=== PATIENT | male | born 1950 | race Caucasian/White ===

== ENCOUNTER 2021-02-05 12:44 | Inpatient (IN) | payer MEDICARE, OTHER ==
[2021-02-05 13:37] LABS: #Basophils 0.1 10x3/uL (0.0-0.2); #Eosinphils 0.3 10x3/uL (0.0-0.5); #Monocytes 0.6 10x3/uL (0.0-1.1); #Neutrophils 6.2 10x3/uL (1.5-8.4); %Basophils 0.7 % (0.0-2.0); %Eosinophils 2.9 % (0.0-6.0); %Lymphocytes 20.7 % (18.0-47.0); %Monocytes 6.3 % (0.0-10.0); %Neutrophils 68.7 % (40.0-75.0); Mean Corpuscular HGB CONC 32.5 g/dL (32.0-36.0); Mean Corpuscular Volume 92.5 fl (81.2-95.1); Mean Platelet Volume 10.3 fl (7.4-10.4); Platelet Count 253 10x3/uL (150-450); RBC Distribution Width 12.8 % (11.5-14.5); Red Blood Cell (RBC) Count 4.66 10x6/uL (4.32-5.72)
[2021-02-05 13:56] LABS: ALT (SGPT) 18 U/L (8-55); AST (SGOT) 19 U/L (5-34); Albumin 3.9 g/dL (3.4-4.8); Alkaline Phosphatase 87 U/L (40-110); Anion Gap 15 mmol/L (10-20); BUN (Urea Nitrogen) 34 mg/dL (8.4-25.7); Calc. Creatinine Clearance 0 mL/min (70-130); Calcium 10.1 mg/dL (7.8-10.44); Carbon Dioxide 25 mmol/L (23-31); Chloride 105 mmol/L (98-107); Globulin 3.6 g/dL (2.4-3.5); Glucose 221 mg/dL (80-115); Potassium 4.4 mmol/L (3.5-5.1); Protein, Total 7.5 g/dL (5.8-8.1); Sodium 141 mmol/L (136-145)
[2021-02-05 14:16] LABS: CKMB 1.8 ng/mL (0-6.6)
[2021-02-05] MEDS ORDERED: Haloperidol Lactate 5 MG/ML VIAL ONE ×2 (14:35→20:23)
[2021-02-05] MEDS ORDERED: Midazolam HCl 2 mg/2 ml Vial ONE ×2 (15:06→18:32)
[2021-02-05 15:53] LABS: Bilirubin Neg (Negative); Blood, Urine Negative (Negative); Glucose, Urine (Dipstick) 50 mg/dL (Negative); Ketone, Urine 5 mg/dL (Negative); Leukocyte 25 (Negative); Nitrite Negative (Negative); Protein, Urine (Dipstick) 100 mg/dl (Neg-Trace); Urobilinogen Normal mg/dL (Less than 2)
[2021-02-05 16:00] LABS: Clarity Clear (Clear)
[2021-02-05 16:12] LABS: RBC/HPF None Seen HPF (0-3); Squamous Epithelial 0-3 HPF (0-3)
[2021-02-05 16:13] LABS: Bacteria/HPF Rare-Few HPF (None Seen)
[2021-02-05 19:30] LABS: Troponin I 0.102 ng/mL (< 0.028)
[2021-02-05] MEDS ORDERED: Senokot S 8.6-50 MG TAB PO PRN (21:40)
[2021-02-05] MEDS ORDERED: Acetaminophen 325 MG TAB PO PRN (21:40)
[2021-02-05] MEDS ORDERED: Calcium Carbonate 500 MG ChewTAB PO PRN (21:40)
[2021-02-05] MEDS ORDERED: Ondansetron PF 4 MG/2 ML Vial IVP PRN (21:40)
[2021-02-05] MEDS ORDERED: Dextrose 5% in Water 1,000 ML IV PRN (21:54)
[2021-02-05] MEDS ORDERED: Dextrose 50% Abboject 50 ML SYRINGE SLOW IVP PRN (21:54)
[2021-02-06 00:20] LABS: CKMB 2.4 ng/mL (0-6.6)
[2021-02-06 04:15] LABS: Anion Gap 15 mmol/L (10-20); BUN (Urea Nitrogen) 34 mg/dL (8.4-25.7); Calc. Creatinine Clearance 0 mL/min (70-130); Calcium 9.8 mg/dL (7.8-10.44); Carbon Dioxide 25 mmol/L (23-31); Chloride 106 mmol/L (98-107); Glucose 145 mg/dL (80-115); Potassium 3.7 mmol/L (3.5-5.1); Sodium 142 mmol/L (136-145)
[2021-02-06 04:46] LABS: CKMB 2.4 ng/mL (0-6.6)
[2021-02-06] MEDS ORDERED: Aspirin Chewable 81 MG TAB ONE (10:02)
[2021-02-06] MEDS ORDERED: Haloperidol Lactate 5 MG/ML VIAL ONE (11:06)
[2021-02-06] MEDS: Alogliptin 25 MG TAB PO SCH (14:56)
[2021-02-06] MEDS: Citalopram 20 MG TAB PO SCH (14:56)
[2021-02-06] MEDS: Amlodipine 10 MG TAB PO SCH (14:56)
[2021-02-06] MEDS: Carvedilol 25 MG TAB PO SCH ×2 (14:56→16:46)
[2021-02-06] MEDS: Aspirin 81 mg Enteric Coated Tablet PO SCH (14:56)
[2021-02-06] MEDS: Sodium Chloride 0.9% 1,000 ML IV SCH (14:56)
[2021-02-06] MEDS: Enoxaparin Sodium 40 MG/0.4 ML SYRINGE SC SCH (14:56)
[2021-02-06] MEDS ORDERED: cloNIDine 0.1mg/24 Hour PATCH TD SCH (17:00)
[2021-02-06 20:48] LABS: Hemoglobin A1c 7.6 % (4.0-6.0)
[2021-02-06] MEDS: Tamsulosin HCl 0.4 MG CAP PO SCH (21:48)
[2021-02-06] MEDS: Rosuvastatin 20 MG TAB PO SCH (21:49)
[2021-02-07] MEDS: Sodium Chloride 0.9% 1,000 ML IV SCH ×2 (01:34→15:50)
[2021-02-07 08:59] LABS: Anion Gap 17 mmol/L (10-20); BUN (Urea Nitrogen) 29 mg/dL (8.4-25.7); Calc. Creatinine Clearance 57 mL/min (70-130); Calcium 9.3 mg/dL (7.8-10.44); Carbon Dioxide 23 mmol/L (23-31); Cardiac Risk 6.8 (Less than 4.5); Chloride 106 mmol/L (98-107); Cholesterol 122 mg/dl (< 200 Desired); Glucose 194 mg/dL (80-115); HDL Cholesterol 18 mg/dL (>60 Neg Risk); LDL Cholesterol, Calculated 68 mg/dL; Potassium 3.7 mmol/L (3.5-5.1); Sodium 142 mmol/L (136-145); Triglycerides 179 mg/dL (Less than 150)
[2021-02-07] MEDS: Citalopram 20 MG TAB PO SCH (10:32)
[2021-02-07] MEDS: Carvedilol 25 MG TAB PO SCH ×2 (10:32→17:58)
[2021-02-07] MEDS: Aspirin 81 mg Enteric Coated Tablet PO SCH (10:33)
[2021-02-07] MEDS: Alogliptin 25 MG TAB PO SCH (10:33)
[2021-02-07] MEDS: Amlodipine 10 MG TAB PO SCH (10:33)
[2021-02-07] MEDS: Enoxaparin Sodium 40 MG/0.4 ML SYRINGE SC SCH (10:39)
[2021-02-07] MEDS: HumaLOG 300 UNITS/3 ML VIAL SC PRN (18:11)
[2021-02-07] MEDS: Tamsulosin HCl 0.4 MG CAP PO SCH (20:46)
[2021-02-07] MEDS: Rosuvastatin 20 MG TAB PO SCH (20:46)
[2021-02-08 07:56] VITALS: BP 97/61; TEMP 98.2
[2021-02-08] MEDS: Sodium Chloride 0.9% 1,000 ML IV SCH (10:19)
[2021-02-08] MEDS: Carvedilol 25 MG TAB PO SCH (10:21)
[2021-02-08] MEDS: Enoxaparin Sodium 40 MG/0.4 ML SYRINGE SC SCH (10:22)
[2021-02-08] MEDS: Amlodipine 10 MG TAB PO SCH (10:22)
[2021-02-08] MEDS: Citalopram 20 MG TAB PO SCH (10:22)
[2021-02-08] MEDS: Alogliptin 25 MG TAB PO SCH (10:22)
[2021-02-08] MEDS: Aspirin 81 mg Enteric Coated Tablet PO SCH (10:22)
[2021-02-08] MEDS: HumaLOG 300 UNITS/3 ML VIAL SC PRN (10:37)
== END 2021-02-08 11:24 | disposition home or self-care (01) | DRG 313 ==
LOC: CSHERS 12:44 → INTOOBSV 21:40 → CSHERHOLD 21:40 → UNDOADMIN 02-06 00:06 → OBSVTOIN 02-06 11:31 → CSHTELE 02-06 14:29
PROVIDERS: ADMIT Student in an Organized Health Care Education/Training Program; ATTEND Internal Medicine
DX: R07.89 Other chest pain (principal); F01.51 Vascular dementia, unspecified severity, with behavioral disturbance; Z95.5 Presence of coronary angioplasty implant and graft; Z91.14 Patient's other noncompliance with medication regimen; I16.0 Hypertensive urgency; I12.9 Hypertensive chronic kidney disease with stage 1 through stage 4 chronic kidney disease, or unspecified chronic kidney disease; E11.22 Type 2 diabetes mellitus with diabetic chronic kidney disease; E11.65 Type 2 diabetes mellitus with hyperglycemia; N18.32 Chronic kidney disease, stage 3b; E78.5 Hyperlipidemia, unspecified; I70.1 Atherosclerosis of renal artery; Z95.0 Presence of cardiac pacemaker; Z95.1 Presence of aortocoronary bypass graft; R77.8 Other specified abnormalities of plasma proteins; H54.8 Legal blindness, as defined in USA; Z66 Do not resuscitate; I25.10 Atherosclerotic heart disease of native coronary artery without angina pectoris; Z88.5 Allergy status to narcotic agent; Z88.2 Allergy status to sulfonamides; Z86.73 Personal history of transient ischemic attack (TIA), and cerebral infarction without residual deficits; Z79.82 Long term (current) use of aspirin; Z79.899 Other long term (current) drug therapy
CPT/HCPCS: 36415; 36416; 51701; 71045; 80048; 80061; 81003; 81015; 82553; 83036; 83605; 84484; 85025; 93005; 94760; 96372; G0378; J1630; J1650; J2250